=== PATIENT | female | born 1995 | race Caucasian/White ===

== ENCOUNTER 2019-10-02 23:06 | Emergency (ER) | payer MEDICAID ==
--- NOTE | 2019-10-02 23:41 | EDM.PDOC ---
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 She has an appointment for an ultrasound in 2 days. No real cramping or particularly heavy bleeding, it is more of a brownish discoloration tonight. She delivered twins 3 months ago. No fevers or chills, no dysuria. 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: Endocrine/Metabolic History: Reports: Obesity/BMI 30+ - Past Surgical History Head Surgeries/Procedures: Reports: None HEENT Surgical History: Reports: Adenoidectomy, Tonsillectomy Endocrine Surgical History: Reports: None Dermatological Surgical History: Reports: None Social & Family History - Tobacco Use Smoking Status *Q: Never Smoker Second Hand Smoke Exposure: No - Caffeine Use Caffeine Use: Reports: None - Recreational Drug Use Recreational Drug Use: No ED ROS GENERAL - Review of Systems Review Of Systems: See Below Constitutional: Denies: Fever, Chills Respiratory: Denies: Shortness of Breath Cardiovascular: Denies: Chest Pain GI/Abdominal: Denies: Nausea, Vomiting Neurological: Reports: No Symptoms ED EXAM - Physical Exam Exam: See Below Exam Limited By: No Limitations General Appearance: Alert, No Apparent Distress Respiratory/Chest: No Respiratory Distress Cardiovascular: Regular Rate, Rhythm Neurological: Alert, Oriented Psychiatric: Normal Affect, Normal Mood Skin Exam: Warm, Dry Course - Vital Signs Last Recorded V/S: Last Vital Signs Temp 97.6 F 10/02/19 23:21 Pulse 91 10/02/19 23:21 Resp 16 10/02/19 23:21 BP 145/65 H 10/02/19 23:21 Pulse Ox 99 10/02/19 23:21 - Orders/Labs/Meds Orders: Active Orders 24 hr Category Date Time Status HCG QUANTITATIVE [CHEM] Stat Lab 10/02/19 23:45 Received Labs: Laboratory Tests 10/02/19 Range/Units 23:45 WBC 11.2 H (4.5-11.0) K/uL RBC 4.60 (3.30-5.50) M/uL Hgb 11.0 L (12.0-15.0) g/dL Hct 36.2 (36.0-48.0) % MCV 79 L (80-98) fL MCH 24 L (27-31) pg MCHC 30 L (32-36) % Plt Count 418 H (150-400) K/uL Neut % (Auto) 55 (36-66) % Lymph % (Auto) 36 (24-44) % [place] % (Auto) 7 H (2-6) % Eos % (Auto) 1 L (2-4) % Baso % (Auto) 0 (0-1) % - Re-Assessments/Exams Free Text/Narrative Re-Assessment/Exam: 10/02/19 23:38 No pelvic exam is indicated tonight, we did draw a hemoglobin and a baseline quantitative beta-hCG. This can be informative in a couple of days if she continues to have spotting. She may want to call her primary provider tomorrow to see if they can move up her ultrasound but I do not have a good medical reason to call ultrasound in at this time of night as it will not affect care. It can be done tomorrow at the clinic. 10/03/19 00:31 Quantitative beta-hCG returned almost 31,000 which is reassuring. Departure - Departure Time of Disposition: 23:49 Disposition: Home, Self-Care 01 Clinical Impression: Threatened - Discharge Information Instructions: Threatened Miscarriage Referrals: Rosi Roe CNM [Primary Care Provider] - Forms: ED Department Discharge Care Plan Goals: Rest tonight, if bleeding and symptoms slow down or stop recheck in 2 days for another blood test or keep your ultrasound appointment as scheduled. If not improving call your provider tomorrow or return to the emergency room if heavy bleeding, and ultrasound can be done at that time. Sepsis Event Note (ED) - Evaluation Sepsis Screening Result: No Definite Risk - Focused Exam Vital Signs: Vital Signs Temp Pulse Resp BP Pulse Ox 10/02/19 23:21 97.6 F 91 16 145/65 H 99 10/02/19 23:20 97.6 F 91 16 145/65 H 99 - My Orders Last 24 Hours: My Active Orders 10/02/19 23:45 HCG QUANTITATIVE [CHEM] Stat - Assessment/Plan Last 24 Hours: My Active Orders 10/02/19 23:45 HCG QUANTITATIVE [CHEM] Stat
== END 2019-10-02 23:49 | disposition home or self-care (01) ==
LOC: JP.ED 23:06
DX: O20.0 Threatened abortion (principal); O99.211 Obesity complicating pregnancy, first trimester; E66.9 Obesity, unspecified; Z68.41 Body mass index [BMI] 40.0-44.9, adult; Z3A.01 Less than 8 weeks gestation of pregnancy
CPT/HCPCS: 36415; 84702; 85025; 99283; 99284

== ENCOUNTER 2020-01-16 18:45 | Emergency (ER) | payer MEDICAID ==
--- NOTE | 2020-01-16 19:25 | EDM.PDOC ---
ED HPI GENERAL MEDICAL PROBLEM - General Chief Complaint: Genitourinary Problem Stated Complaint: LOWER BELLY AND BACK PAIN Time Seen by Provider: 01/16/20 19:10 Source of Information: Reports: Patient, Family History Limitations: Reports: No Limitations - History of Present Illness INITIAL COMMENTS - FREE TEXT/NARRATIVE: 24-year-old female had some mild intermittent low back discomfort yesterday, today seemed better, bowels moving normal but tonight for the last 2 hours she has been having some cramping in the lower abdomen and pelvis. She feels an urge to urinate, no nausea or vomiting, no fevers or chills. She took some ibuprofen and is feeling better. Pain is lower abdomen, bilateral with a slight radiation to her lower back. Onset: Sudden (Came on fairly suddenly 2 hours ago except for some mild back discomfort last evening) Duration: Hour(s): (2 hours) Location: Reports: Abdomen, Pelvis Associated Symptoms: Reports: Other (Urinary urgency). Denies: Confusion, Fever/Chills, Loss of Appetite, Malaise, Nausea/Vomiting, Shortness of Breath suprapubic Pain Score (Numeric/FACES): 4 - Related Data Allergies Allergy/AdvReac Type Severity Reaction Status Date / Time No Known Allergies Allergy Verified 01/16/20 18:57 Home Meds: Home Meds norgestimate-ethinyl estradioL [Estarylla 0.25-0.035 mg Tablet] 1 each PO DAILY 01/16/20 [History] Past Medical History HEENT History: Reports: Impaired Vision [employer] History: Reports: , Spontaneous Endocrine/Metabolic History: Reports: Obesity/BMI 30+ - Infectious Disease History Infectious Disease History: Reports: None - Past Surgical History HEENT Surgical History: Reports: Adenoidectomy, Tonsillectomy Female Surgical History: Reports: D&C Endocrine Surgical History: Reports: None Social & Family History - Tobacco Use Tobacco Use Status *Q: Never Tobacco User - Caffeine Use Caffeine Use: Reports: None - Recreational Drug Use Recreational Drug Use: No ED ROS GENERAL - Review of Systems Review Of Systems: See Below Constitutional: Denies: Fever, Chills HEENT: Reports: No Symptoms Respiratory: Reports: No Symptoms Cardiovascular: Reports: No Symptoms GI/Abdominal: Reports: Abdominal Pain. Denies: Constipation, Diarrhea, Hematemesis, Hematochezia, Nausea, Vomiting : Reports: Urgency. Denies: Dysuria, Hematuria Musculoskeletal: Reports: Back Pain Skin: Reports: No Symptoms Neurological: Reports: No Symptoms ED EXAM, GI/ABD - Physical Exam Exam: See Below Exam Limited By: No Limitations General Appearance: Alert, No Apparent Distress Eyes: Bilateral: Normal Appearance (No jaundice) Head: Atraumatic Respiratory/Chest: Lungs Clear GI/Abdominal Exam: Soft, Tender (I can reproduce some tenderness to palpation of both lower quadrants but there is no guarding and only slight rebound tenderness) Neurological: Alert, Oriented Psychiatric: Normal Affect, Normal Mood Skin Exam: Warm, Dry Course - Vital Signs Last Recorded V/S: Last Vital Signs Temp 96.6 F L 01/16/20 19:00 Pulse 87 01/16/20 19:00 Resp 16 01/16/20 19:00 BP 139/84 01/16/20 19:00 Pulse Ox 99 01/16/20 19:00 - Orders/Labs/Meds Orders: Active Orders 24 hr Category Date Time Status CULTURE URINE [RM] Stat Lab 01/16/20 20:08 Received Labs: Laboratory Tests 01/16/20 01/16/20 01/16/20 Range/Units 19:22 19:22 19:32 WBC 9.4 (4.5-11.0) K/uL RBC 5.03 (3.30-5.50) M/uL Hgb 11.7 L (12.0-15.0) g/dL Hct 38.8 (36.0-48.0) % MCV 77 L (80-98) fL MCH 23 L (27-31) pg MCHC 30 L (32-36) % Plt Count 496 H (150-400) K/uL Neut % (Auto) 54 (36-66) % Lymph % (Auto) 36 (24-44) % [place] % (Auto) 9 H (2-6) % Eos % (Auto) 1 L (2-4) % Baso % (Auto) 0 (0-1) % Sodium (140-148) mmol/L Potassium (3.6-5.2) mmol/L Chloride (100-108) mmol/L Carbon Dioxide (21-32) mmol/L Anion Gap (5.0-14.0) mmol/L BUN (7-18) mg/dL Creatinine (0.6-1.0) mg/dL Est Cr Clr Drug Dosing mL/min Estimated GFR (MDRD) (>60) Glucose (74-106) mg/dL Calcium (8.5-10.1) mg/dL Urine Color Yellow (YELLOW) Urine Appearance Cloudy A (CLEAR) Urine pH 6.0 (5.0-8.0) Ur Specific [place] >= 1.030 (1.008-1.030) Urine Protein Negative (NEGATIVE) mg/dL Urine Glucose (UA) Negative (NEGATIVE) mg/dL Urine Ketones Negative (NEGATIVE) mg/dL Urine Occult Blood Negative (NEGATIVE) Urine Nitrite Negative (NEGATIVE) Urine Bilirubin Small H (NEGATIVE) Urine Urobilinogen 0.2 (0.2-1.0) EU/dL Ur Leukocyte Esterase Trace H (NEGATIVE) Urine RBC 0-5 (0-5) Urine WBC 5-10 H (0-5) Ur Epithelial Cells Many Amorphous Sediment Not seen Urine Bacteria Many Urine Mucus Few Urine HCG, Qual Negative 01/16/20 Range/Units 19:32 WBC (4.5-11.0) K/uL RBC (3.30-5.50) M/uL Hgb (12.0-15.0) g/dL Hct (36.0-48.0) % MCV (80-98) fL MCH (27-31) pg MCHC (32-36) % Plt Count (150-400) K/uL Neut % (Auto) (36-66) % Lymph % (Auto) (24-44) % [place] % (Auto) (2-6) % Eos % (Auto) (2-4) % Baso % (Auto) (0-1) % Sodium 142 (140-148) mmol/L Potassium 4.0 (3.6-5.2) mmol/L Chloride 103 (100-108) mmol/L Carbon Dioxide 28 (21-32) mmol/L Anion Gap 11.2 (5.0-14.0) mmol/L BUN 15 (7-18) mg/dL Creatinine 1.0 (0.6-1.0) mg/dL Est Cr Clr Drug Dosing 78.06 mL/min Estimated GFR (MDRD) > 60 (>60) Glucose 97 (74-106) mg/dL Calcium 8.4 L (8.5-10.1) mg/dL Urine Color (YELLOW) Urine Appearance (CLEAR) Urine pH (5.0-8.0) Ur Specific [place] (1.008-1.030) Urine Protein (NEGATIVE) mg/dL Urine Glucose (UA) (NEGATIVE) mg/dL Urine Ketones (NEGATIVE) mg/dL Urine Occult Blood (NEGATIVE) Urine Nitrite (NEGATIVE) Urine Bilirubin (NEGATIVE) Urine Urobilinogen (0.2-1.0) EU/dL Ur Leukocyte Esterase (NEGATIVE) Urine RBC (0-5) Urine WBC (0-5) Ur Epithelial Cells Amorphous Sediment Urine Bacteria Urine Mucus Urine HCG, Qual - Re-Assessments/Exams Free Text/Narrative Re-Assessment/Exam: 01/16/20 19:25 A UA was obtained, also urine will be run. CBC and BMP obtained. 01/16/20 20:06 UA shows many bacteria but no inflammatory component such as white cells, negative for RBCs. CBC and BMP are normal. Patient was still having some discomfort and urgency so will be covered with Macrobid twice daily for at least 5 days while a urine culture was ordered. She can return if worsening such as increased pain or fever, or recheck in 3 to 4 days if not improving despite antibiotics. Departure - Departure Time of Disposition: 20:13 Disposition: Home, Self-Care 01 Clinical Impression: UTI, Urinary tract infectious disease Abdominal pain Qualifiers: Abdominal location: lower abdomen, unspecified Qualified Code(s): R10.30 - Lower abdominal pain, unspecified - Discharge Information Instructions: Urinary Tract Infection, Adult Referrals: PCP,None [Primary Care Provider] - Forms: ED Department Discharge Care Plan Goals: Take antibiotic twice daily at least 5 days, 7 days if tolerating the medication. Recheck in 3 to 4 days if not improving satisfactorily, or return sooner if worsening such as fever or increased pain. You will be informed if medication changes needed in around 48 hours if the culture indicates a different medication would be more appropriate. Sepsis Event Note (ED) - Evaluation Sepsis Screening Result: No Definite Risk - Focused Exam Vital Signs: Vital Signs Temp Pulse Resp BP Pulse Ox 01/16/20 19:00 96.6 F L 87 16 139/84 99 - My Orders Last 24 Hours: My Active Orders 01/16/20 20:08 CULTURE URINE [RM] Stat - Assessment/Plan Last 24 Hours: My Active Orders 01/16/20 20:08 CULTURE URINE [RM] Stat
== END 2020-01-16 20:13 | disposition home or self-care (01) ==
LOC: JP.ED 18:45
DX: N39.0 Urinary tract infection, site not specified (principal); E66.9 Obesity, unspecified; Z68.36 Body mass index [BMI] 36.0-36.9, adult
CPT/HCPCS: 36415; 80048; 81001; 81025; 85025; 87086; 99283; 99284